=== PATIENT | female | born 1960 | race Two or more races ===

== ENCOUNTER 2021-11-02 10:27 | Emergency (ER) | payer OTHER ==
[~2021-11-02] VITALS: Ht 154.9 cm; Wt 72.3 kg
[2021-11-02] MEDS ORDERED: SODIUM CHLORIDE 0.9% 1,000 ML IV ONE ×2 (11:00)
[2021-11-02 12:02] LABS: Basophils # (auto) 0 10 ^3/uL (0-0.2); Basophils % (auto) 0.6 % (0.0-2.0); Eosinophils # (auto) 0.1 10 ^3/uL (0-0.8); Eosinophils % (auto) 0.7 % (0.0-7.0); Hematocrit 46.2 % (36.0-46.0); Hemoglobin 15.3 g/dL (12.2-16.2); Lymphocytes # (auto) 1.3 10 ^3/uL (0.4-5.4); Lymphocytes % (auto) 16.5 % (10.0-50.0); Mean Corpuscular Hemoglobin 29.7 pg (28.0-32.0); Mean Corpuscular Hgb Conc. 33.2 g/dL (32.0-36.0); Mean Corpuscular Volume 89.5 fL (80.0-100.0); Monocytes # (auto) 0.5 10 ^3/uL (0-1.3); Monocytes % (auto) 6.2 % (0.0-12.0); Neutrophils # (auto) 5.8 10 ^3/uL (1.6-8.6); Nucleated Red Blood Cells % 0.1 %; Red Blood Cells 5.16 10^6/uL (4.0-5.20); Red Cell Distribution Width 13.5 % (11.8-14.3); White Blood Cell 7.6 10^3/uL (4.4-10.8)
[2021-11-02] MEDS ORDERED: cloNIDine HCL 0.1 MG TAB PO ONE (12:15)
[2021-11-02 12:17] LABS: Albumin 3.7 g/dL (3.4-5.0); Calcium 9.1 mg/dL (8.5-10.1)
[2021-11-02 12:17] LABS: Urine Bacteria NONE SEEN /hpf (None Seen); Urine Blood Negative /uL (Negative); Urine Mucus FEW (None Seen); Urine Specific Gravity 1.024 (1.001-1.035); Urine WBC 39 /hpf (0 - 5)
[2021-11-02 12:20] LABS: BUN/Creatinine Ratio 27.4; Bilirubin, Total 0.3 mg/dL (0.2-1.0)
[2021-11-02] MEDS ORDERED: NITR-87 PO (12:54)
[2021-11-02] MEDS ORDERED: LISI20TA28 PO (12:54)
[2021-11-02 14:00] VITALS: BP 129/73
== END 2021-11-02 15:49 | disposition home or self-care (01) ==
LOC: ER 10:27
DX: I16.0 Hypertensive urgency (principal); R42 Dizziness and giddiness
CPT/HCPCS: 36415; 70450; 80053; 81001; 84484; 85025; 96360; 96361; 99285; J7030